=== PATIENT | male | born 1985 | race American Indian/Alaskan Native ===

== ENCOUNTER 2017-04-16 22:14 | Emergency (ER) | payer SELFPAY ==
[2017-04-16 22:29] VITALS: BP 121/76; PULSE 72; RESP 14; TEMP 98.1; O2SAT 97
--- NOTE | 2017-04-16 23:08 | C.PDOC ---
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 Time Seen by Provider: 04/16/17 22:32 Chief Complaint (Nursing): Upper Extremity Problem/Injury History Per: Patient History/Exam Limitations: no limitations Onset/Duration Of Symptoms: Hrs (1) Current Symptoms Are (Timing): Still Present Exacerbating Factor(s): Nothing Recent travel outside of the [place]: No Past Medical History Reviewed: Historical Data, Nursing Documentation, Vital Signs Vital Signs: Last Vital Signs Temp 98.1 F 04/16/17 22:25 Pulse 72 04/16/17 22:25 Resp 14 04/16/17 22:25 BP 121/76 04/16/17 22:25 Pulse Ox 97 04/16/17 23:58 - Medical History PMH: No Chronic Diseases Surgical History: No Surg Hx Family History: States: No Known Family Hx - Social History Hx Alcohol Use: Yes Hx Substance Use: No - Immunization History Hx Tetanus Toxoid Vaccination: Yes Hx Influenza Vaccination: Yes Hx Pneumococcal Vaccination: Yes Review Of Systems Constitutional: Negative for: Fever, Chills Cardiovascular: Negative for: Chest Pain Respiratory: Negative for: Shortness of Breath Musculoskeletal: Positive for: Shoulder Pain (right) Neurological: Negative for: Weakness, Numbness Physical Exam - Physical Exam Appears: Non-toxic, No Acute Distress Skin: Normal Color, Warm, No Rash Head: Atraumatic, Normacephalic Eye(s): bilateral: Normal Inspection Oral Mucosa: Moist Neck: Normal ROM, No Midline Cervical Tenderness, No Paracervical Tenderness, Supple Extremity: Tenderness (mild to the anterior right shoulder ), Capillary Refill ( < 2 sec), No Deformity, Other (able to Abduct shoulder to about 90 degrees) Extremity: Bilateral: Normal Color And Temperature Pulses: Left Brachial: Normal, Right Brachial: Normal, Left Radial: Normal, Right Radial: Normal Neurological/Psych: Oriented x3, Normal Speech, Normal Cognition, Normal Motor Gait: Steady ED Course And Treatment O2 Sat by Pulse Oximetry: 97 (RA) Pulse Ox Interpretation: Normal Medical Decision Making Medical Decision Making: Administered Tylenol. Ordered Right shoulder X-Ray. X-Ray results: - Negative - No fracture - No dislocation Patient is moving the arm normally. States he does not want a sling at this time. 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 - Scribe Statement The provider has reviewed the documentation as recorded by the Jazmínibjhoan Fairbanks All medical record entries made by the Scribe were at my direction and personally dictated by me. I have reviewed the chart and agree that the record accurately reflects my personal performance of the history, physical exam, medical decision making, and the department course for this patient. I have also personally directed, reviewed, and agree with the discharge instructions and disposition.
--- NOTE | 2017-04-19 08:58 | RAD ---
PROCEDURE: Radiographs of the Right Shoulder HISTORY: shoulder pain, "pop" sound COMPARISON: No prior. FINDINGS: BONES: Normal. No fracture. JOINTS: Normal. Glenohumeral and acromioclavicular joints preserved. No osteoarthritis. SOFT TISSUES: Normal. OTHER FINDINGS: None. IMPRESSION: Normal radiographs of the right shoulder.
== END 2017-04-16 23:31 | disposition home or self-care (01) ==
LOC: C.ER 22:14
DX: S43.401A Unspecified sprain of right shoulder joint, initial encounter (principal); X58.XXXA Exposure to other specified factors, initial encounter